=== PATIENT | female | born 1980 | race Caucasian/White ===

== ENCOUNTER 2025-02-22 21:02 | Emergency (ER) | payer OTHER, MEDICAID ==
[2025-02-23] MEDS ORDERED: HYDROcodone/Acetaminophen 5/325 mg Tablet ONE (01:21)
== END 2025-02-23 04:49 | disposition home or self-care (01) ==
LOC: CSHERS 21:02
DX: M25.562 Pain in left knee (principal); E11.9 Type 2 diabetes mellitus without complications; I10 Essential (primary) hypertension
CPT/HCPCS: 99283